=== PATIENT | male | born 1965 ===

== ENCOUNTER 2020-12-12 12:10 | Inpatient (IN) | payer SELFPAY ==
[~2020-12-12 12:10] MED LIST: Iopamidol-370 76% 500 ML 1 ML ONE
[2020-12-12 12:49] LABS: Hemoglobin 16.1 g/dL (12.0-16.0); Mean Corpuscular HGB CONC 32.7 g/dL (32.0-36.0); Mean Corpuscular Volume 85.7 fL (78.0-98.0); Platelet Count 201 thou/uL (130-400); RBC Distribution Width 13.6 % (11.5-14.5); Red Blood Cell (RBC) Count 5.73 mill/uL (4.20-5.40); White Blood Cell (WBC) Count 9.5 thou/uL (4.8-10.8)
[2020-12-12 13:12] LABS: ALT (SGPT) 36 U/L (8-55); AST (SGOT) 32 U/L (5-34); Albumin 4.4 g/dL (3.5-5.0); Alkaline Phosphatase 95 U/L (40-110); Anion Gap 11 mmol/L (10-20); BUN (Urea Nitrogen) 13 mg/dL (9.8-20.1); Bilirubin, Total 0.7 mg/dL (0.2-1.2); Calc. Creatinine Clearance 0 mL/min (70-130); Calcium 9.8 mg/dL (7.8-10.44); Carbon Dioxide 28 mmol/L (22-29); Chloride 105 mmol/L (98-107); Globulin 3.9 g/dL (2.4-3.5); Glucose 102 mg/dL (70-105); Potassium 4.3 mmol/L (3.5-5.1); Protein, Total 8.3 g/dL (6.0-8.3); Sodium 140 mmol/L (136-145)
[2020-12-12 13:24] LABS: Band 6 % (5-11); Eosinophils 2 % (0-10); Large Platelets SLIGHT; Lymphocytes 54 % (21-51); MDiff Complete? YES; Monocytes 3 % (0-10); Neutrophil 28 % (42-75); Platelet Morphology Comment Appears Adequate; Reactive Lymphocytes 7 % (0-10)
[2020-12-12 13:33] LABS: CKMB 3.7 ng/mL (0-6.6)
[2020-12-12] MEDS ORDERED: Ketorolac Tromethamine 30 MG/ML VIAL ONE (14:47)
[2020-12-12] MEDS ORDERED: Nitroglycerin 2% Ointment 1 INCH/1 GM Packet ONE (15:59)
[2020-12-12 17:13] LABS: CKMB 8.8 ng/mL (0-6.6)
[2020-12-12] MEDS ORDERED: Acetaminophen 650 MG Suppository PR PRN (17:14)
[2020-12-12] MEDS ORDERED: Acetaminophen 325 MG TAB PO PRN (17:14)
[2020-12-12] MEDS ORDERED: Nitroglycerin 0.4 MG TAB (25 Tab Bottle) SL PRN (17:14)
[2020-12-12] MEDS ORDERED: Aspirin 325 mg Enteric Coated Tablet PO SCH (17:30)
[2020-12-12 17:39] VITALS: BMI 33.6
[2020-12-12] MEDS ORDERED: hydrALAZINE 20 MG/ML VIAL SLOW IVP PRN (17:43)
[2020-12-12] MEDS ORDERED: Amlodipine 5 MG TAB PO SCH (17:45)
[2020-12-12] MEDS ORDERED: Sodium Chloride 0.9% 1,000 ML IV SCH (19:30)
[2020-12-12 19:50] LABS: Troponin I 1.537 ng/mL (< 0.028)
[2020-12-12] MEDS ORDERED: Enoxaparin Sodium 100 MG/ML SYRINGE SC SCH (21:00)
[2020-12-12] MEDS: Nitroglycerin 2% Ointment 1 INCH/1 GM Packet TOP SCH (21:00)
[2020-12-13 01:53] LABS: SARS-CoV-2 PCR by NAA Not Detected (NotDetected)
[2020-12-13 05:01] LABS: Anion Gap 11 mmol/L (10-20); BUN (Urea Nitrogen) 12 mg/dL (8.4-25.7); Calc. Creatinine Clearance 114 mL/min (70-130); Calcium 8.8 mg/dL (7.8-10.44); Carbon Dioxide 24 mmol/L (22-29); Cardiac Risk 5.2 (Less than 4.5); Chloride 106 mmol/L (98-107); Cholesterol 160 mg/dl (< 200 Desired); Glucose 105 mg/dL (70-105); HDL Cholesterol 31 mg/dL (>60 Neg Risk); LDL Cholesterol, Calculated 110 mg/dL; Sodium 137 mmol/L (136-145); Triglycerides 95 mg/dL (Less than 150)
[2020-12-13 05:15] LABS: Hemoglobin 14.3 g/dL (14.0-18.0); Mean Corpuscular HGB CONC 31.9 g/dL (32.0-36.0); Mean Corpuscular Hemoglobin 27.3 pg (27.0-31.0); Mean Corpuscular Volume 85.7 fL (78.0-98.0); Mean Platelet Volume 9.7 fL (7.4-10.4); Platelet Count 186 thou/uL (130-400); RBC Distribution Width 13.6 % (11.5-14.5); Red Blood Cell (RBC) Count 5.22 mill/uL (4.70-6.10); White Blood Cell (WBC) Count 11.1 thou/uL (4.8-10.8)
[2020-12-13 05:42] LABS: #Basophils 0.1 thou/uL (0.0-0.2); #Eosinphils 0.4 thou/uL (0.0-0.7); #Lymphocytes 4.1 thou/uL (1.20-3.40); #Neutrophils 5.6 thou/uL (1.40-6.50); %Basophils 0.8 % (0.0-1.0); %Eosinophils 3.4 % (0.0-10.0); %Lymphocytes 37.1 % (21.0-51.0); %Monocytes 8.7 % (0.0-10.0); Large Platelets SLIGHT; MDiff Complete? YES; Platelet Morphology Comment Appears Adequate
[2020-12-13] MEDS: Nitroglycerin 2% Ointment 1 INCH/1 GM Packet TOP SCH ×3 (06:22→21:17)
[2020-12-13] MEDS: Amlodipine 10 MG TAB PO SCH (09:23)
[2020-12-13] MEDS: Aspirin 81 mg Enteric Coated Tablet PO SCH (09:24)
[2020-12-13] MEDS ORDERED: Losartan 25 MG TAB PO SCH (15:00)
[2020-12-13] MEDS: Losartan 25 MG TAB PO SCH (21:15)
[2020-12-13] MEDS: Atorvastatin Calcium 40 MG TAB PO SCH (21:15)
[2020-12-13] MEDS ORDERED: Metoprolol Tartrate 5 MG/5 ML VIAL ONE (21:57)
[2020-12-13] MEDS ORDERED: Metoprolol Tartrate 5 MG/5 ML VIAL IVP SCH (22:00)
[2020-12-13] MEDS ORDERED: Ondansetron PF 4 MG/2 ML Vial IVP PRN (22:12)
[2020-12-13] MEDS ORDERED: Metoprolol Tartrate 25 MG TAB PO SCH (22:45)
[2020-12-13 22:55] LABS: Potassium 3.8 mmol/L (3.5-5.1)
[2020-12-13 23:09] LABS: Troponin I 4.673 ng/mL (< 0.028)
[2020-12-13] MEDS ORDERED: Enoxaparin Sodium 120 MG/0.8 ML SYRINGE SC SCH (23:45)
[2020-12-14] MEDS ORDERED: Nitroglycerin 2% Ointment 1 INCH/1 GM Packet TOP SCH (00:15)
[2020-12-14 05:30] LABS: CKMB 22.9 ng/mL (0-6.6); Troponin I 7.118 ng/mL (< 0.028)
[2020-12-14] MEDS: Nitroglycerin 2% Ointment 1 INCH/1 GM Packet TOP SCH ×3 (05:37→21:55)
[2020-12-14] MEDS: Aspirin 81 mg Enteric Coated Tablet PO SCH (08:49)
[2020-12-14] MEDS: Enoxaparin Sodium 120 MG/0.8 ML SYRINGE SC SCH ×2 (08:49→21:21)
[2020-12-14] MEDS: Metoprolol Tartrate 25 MG TAB PO SCH ×2 (08:51→21:21)
[2020-12-14] MEDS: Losartan 25 MG TAB PO SCH ×2 (08:51→21:21)
[2020-12-14] MEDS: Amlodipine 10 MG TAB PO SCH (08:51)
[2020-12-14] MEDS ORDERED: Enoxaparin Sodium 120 MG/0.8 ML SYRINGE SC SCH (09:00)
[2020-12-14] MEDS ORDERED: Metoprolol Tartrate 25 MG TAB PO SCH (21:00)
[2020-12-14] MEDS ORDERED: Communication Order-Pharmacy FS SCH (21:15)
[2020-12-14] MEDS: Atorvastatin Calcium 40 MG TAB PO SCH (21:21)
[2020-12-15] MEDS ORDERED: Sodium Chloride 0.9% 250 ML IV SCH (00:01)
[2020-12-15] MEDS: Aspirin 81 mg Enteric Coated Tablet PO SCH (05:30)
[2020-12-15] MEDS: Nitroglycerin 2% Ointment 1 INCH/1 GM Packet TOP SCH ×3 (05:30→21:25)
[2020-12-15] MEDS: Metoprolol Tartrate 25 MG TAB PO SCH ×2 (05:30→20:35)
[2020-12-15] MEDS: Amlodipine 10 MG TAB PO SCH (05:30)
[2020-12-15] MEDS: Losartan 25 MG TAB PO SCH ×2 (05:31→21:25)
[2020-12-15 05:36] LABS: Anion Gap 12 mmol/L (10-20); BUN (Urea Nitrogen) 21 mg/dL (8.4-25.7); Calc. Creatinine Clearance 70 mL/min (70-130); Carbon Dioxide 28 mmol/L (22-29); Chloride 99 mmol/L (98-107); Glucose 106 mg/dL (70-105); Potassium 3.6 mmol/L (3.5-5.1); Sodium 135 mmol/L (136-145)
[2020-12-15] MEDS ORDERED: Lidocaine 1% (PF) 30 ML VIAL ONE (08:01)
[2020-12-15 08:05] LABS: Amphetamine Not Detected (NotDetected); Barbiturates Screen Not Detected (NotDetected); Benzodiazepine Screen Not Detected (NotDetected); Cocaine Metabolite Screen Not Detected (NotDetected); Medtox Control Line Valid? VALID (VALID); Medtox Reader # READER 4; Methadone Not Detected (NotDetected); Methamphetamine Not Detected (NotDetected); Opiate Screen Not Detected (NotDetected); Oxycodone Screen Not Detected (NotDetected); Phencyclidine (PCP) Not Detected (NotDetected); THC/Cannabinoid Screen Not Detected (NotDetected); Tricyclic Screen Not Detected (NotDetected)
[2020-12-15] MEDS ORDERED: Midazolam HCl 2 mg/2 ml Vial ONE (08:46)
[2020-12-15] MEDS ORDERED: Fentanyl 100 MCG/2 ML VIAL ONE (08:46)
[2020-12-15] MEDS ORDERED: Iopamidol 370 76% 100 ML VIAL ONE (08:49)
[2020-12-15] MEDS ORDERED: Nitroglycerin 0.4 MG TAB (25 Tab Bottle) SL PRN (09:14)
[2020-12-15] MEDS ORDERED: Sodium Chloride 0.9% 200 ML IV PRN (09:14)
[2020-12-15] MEDS ORDERED: Acetaminophen/Codeine 30-300mg Tablet PO PRN (09:14)
[2020-12-15] MEDS: Sodium Chloride 0.9% 1,000 ML IV SCH ×2 (13:05→21:25)
[2020-12-15] MEDS: Atorvastatin Calcium 40 MG TAB PO SCH (20:33)
[2020-12-16] MEDS: Nitroglycerin 2% Ointment 1 INCH/1 GM Packet TOP SCH ×2 (05:55→15:37)
[2020-12-16] MEDS: Aspirin 81 mg Enteric Coated Tablet PO SCH (10:21)
[2020-12-16] MEDS: Metoprolol Tartrate 25 MG TAB PO SCH ×2 (10:22→20:25)
[2020-12-16] MEDS: Apixaban 5 MG TAB PO SCH ×2 (10:30→20:25)
[2020-12-16] MEDS: Losartan 25 MG TAB PO SCH ×2 (10:30→20:25)
[2020-12-16] MEDS: Atorvastatin Calcium 40 MG TAB PO SCH (20:25)
[2020-12-17 06:01] LABS: Anion Gap 11 mmol/L (10-20); BUN (Urea Nitrogen) 15 mg/dL (8.4-25.7); Calc. Creatinine Clearance 102 mL/min (70-130); Calcium 8.7 mg/dL (7.8-10.44); Carbon Dioxide 27 mmol/L (22-29); Chloride 104 mmol/L (98-107); Glucose 106 mg/dL (70-105); Potassium 3.7 mmol/L (3.5-5.1); Sodium 138 mmol/L (136-145)
[2020-12-17] MEDS: Aspirin 81 mg Enteric Coated Tablet PO SCH (07:28)
[2020-12-17] MEDS: Losartan 25 MG TAB PO SCH (07:28)
[2020-12-17] MEDS: Apixaban 5 MG TAB PO SCH (07:29)
[2020-12-17] MEDS: Metoprolol Tartrate 25 MG TAB PO SCH (07:29)
[2020-12-17 07:40] VITALS: TEMP 98.3
[2020-12-17 08:23] VITALS: BP 124/76
[2020-12-17 09:10] LABS: Platelet Count 226 thou/uL (130-400)
== END 2020-12-17 11:10 | disposition home or self-care (01) | DRG 281 ==
LOC: ERS 12:10 → ERHOLD 16:10 → EDSEX 16:10 → 2SW 17:35
PROVIDERS: ADMIT Internal Medicine; ATTEND Hospitalist
PROC: 4A023N7 Measurement of Cardiac Sampling and Pressure, Left Heart, Percutaneous Approach (ICD-10-PCS; principal; 2020-12-15)
PROC: B2151ZZ Fluoroscopy of Left Heart using Low Osmolar Contrast (ICD-10-PCS; 2020-12-15)
PROC: B2111ZZ Fluoroscopy of Multiple Coronary Arteries using Low Osmolar Contrast (ICD-10-PCS; 2020-12-15)
DX: I21.4 Non-ST elevation (NSTEMI) myocardial infarction (principal); I16.1 Hypertensive emergency; N17.9 Acute kidney failure, unspecified; I48.92 Unspecified atrial flutter; Z20.822 Contact with and (suspected) exposure to COVID-19; I48.0 Paroxysmal atrial fibrillation; E78.5 Hyperlipidemia, unspecified; F17.210 Nicotine dependence, cigarettes, uncomplicated; I10 Essential (primary) hypertension; Z79.01 Long term (current) use of anticoagulants; Z79.899 Other long term (current) drug therapy; Z79.82 Long term (current) use of aspirin
CPT/HCPCS: 36415; 71045; 71275; 80048; 80053; 80061; 80306; 82553; 83690; 83735; 84484; 85014; 85018; 85025; 85049; 87635; 93005; 93010; 93458; 93798; 96374; 97139; 99152; J0360; J1650; J1885; J2001; J2250; J2405; J3010; Q9967; U0003; U0005